=== PATIENT | female | born 1940 | race African-American/Black ===

== ENCOUNTER → 2016-12-22 | Day surgery (SDC) | payer MEDICARE, OTHER ==
[~2016-12-22] MED LIST: ALEVE220 M1 PO; AMLODIPINE BESYL5 MG PO; ASPIRIN81 M2 PO; CALCIUM; CALCIUM + D PO; CALCIUM 600 + D1 TAB PO; CALCIUM 600 +1 EAC3 PO; CERTAGEN PO; CIPRO PO; CIPRO250 MG PO; COMBIGAN EYE DRO5 ML OU; FERRO-TIME325 MG PO; FERROUS SULFATE PO; FISH OIL PO; HYDROCODON-ACE1 EAC7 PO; IRON134 MG PO; LIPITOR PO; LIPITOR40 MG PO; LORTAB 7.5-5001 TAB PO; MYRBETRIQ50 MG PO; NORCO 5/325 TAB1 TAB PO; NORVASC PO; STOOL SOFTENER100 M1; STOOL SOFTENER100 M1 PO; STOOL SOFTNER PO; VICODIN 5/1 TAB 5/50 PO; VITAL-D RX TABL1 TAB PO; ZOCOR PO; [UNRECOGNIZED DRUG - REMARK]
--- NOTE | ~2016-12-22 | OR ---
Unit #: [id number] #: [id number] Patient: MILAN ATWOOD [id number] [address] [address] [id number] MR#: [id number] NAME: MILAN ATWOOD. ROOM: Date of Procedure: 12/22/2016 Admission Date: 12/22/2016 Surgeon: Lizandro Linder M.D. : 1940 Attending Physician: Lizandro Linder M.D. Primary Care Physician: Deb Licona A.P.R.N. OPERATIVE REPORT PREOPERATIVE DIAGNOSES Colorectal cancer surveillance. The patient has personal history of colonic polyps. PROCEDURES PERFORMED Colonoscopy and polypectomy. POSTOPERATIVE DIAGNOSES 1. Single sessile polyp in the cecum removed using snare polypectomy. 2. Mild sigmoid and descending colon diverticulosis. 3. Rest of the examination up to cecum was normal. The quality of the prep was good. RECOMMENDATIONS 1. Follow up the results of polyp histology. 2. Consider repeat colonoscopy in 5 years. SEDATION USED MAC. DESCRIPTION OF PROCEDURE Following detailed explanation of potential risks and complications of a colonoscopy, namely perforation, bleeding, and complications related to sedation, the patient was brought to GI lab and laid in the left lateral decubitus position. A digital rectal examination was performed, which was normal. Lubricated tip of the Olympus video colonoscope was inserted through the anus and advanced under direct vision. The scope was advanced past rectosigmoid into descending colon. Multiple small diverticula were seen in this area. The scope tip was then navigated all the way up to cecum with visualization of the ileocecal valve and the appendiceal orifice. Preparation was good with good visualization and photodocumentation was obtained. Successive segments of the colonic mucosa were examined upon withdrawal and appeared unremarkable except for a single sessile polyp seen in the cecum. This was about 5 mm in size. It was removed using snare polypectomy. The polyp was retrieved and sent for histology. No additional polyps were noted. The patient did have left-sided diverticulosis as mentioned earlier. No hemorrhoids were seen at the anal verge. The scope was then withdrawn and the patient returned to the recovery area. She tolerated the procedure without any postprocedure complications. Unit #: [id number] #: [id number] Patient: MILAN ATWOOD Dictated by... Lissette Starr/alina TD: 12/22/2016 11:15 JOB #: [id number] OPERATIVE REPORT Page 1 of 1 X Lizandro Linder MD X PROCEDURE OPERATIVE NOTE
== END | disposition home or self-care (01) ==
LOC: COPS 06:26
DX: Z12.11 Encounter for screening for malignant neoplasm of colon (principal); D12.0 Benign neoplasm of cecum; K57.30 Diverticulosis of large intestine without perforation or abscess without bleeding; K21.9 Gastro-esophageal reflux disease without esophagitis; I10 Essential (primary) hypertension; M19.90 Unspecified osteoarthritis, unspecified site; Z86.010 Personal history of colon polyps; Z85.51 Personal history of malignant neoplasm of bladder; Z87.891 Personal history of nicotine dependence; Z91.040 Latex allergy status; Z79.82 Long term (current) use of aspirin; Z79.899 Other long term (current) drug therapy; Z90.710 Acquired absence of both cervix and uterus; Z98.890 Other specified postprocedural states
CPT/HCPCS: 88305